=== PATIENT | female | born 1950 | race Caucasian/White ===

== ENCOUNTER 2019-11-11 10:57 | Outpatient (CLI) | payer MEDICARE ==
--- NOTE | 2019-11-11 11:23 | ULT ---
Exam: Bilateral renal ultrasound HISTORY: Microscopic hematuria COMPARISON: None FINDINGS: Right kidney: Normal cortical echotexture. No hydronephrosis. Echogenic focus with shadowing in the r ight renal pelvis compatible with a 1.7 cm renal calculus. Right kidney measurements: 4.1 x 7.3 x 12.5 cm. Left kidney: Normal cortical echotexture. No hydronephrosis Left kidney measurements 5.4 x 4.3 x 11.8 cm. Urinary bladder: Normal bladder mucosa. Bladder volume is 33 mL. IMPRESSION: 1. No hydronephrosis 2. Nonobstructing calculus in the right renal pelvis.
== END 2019-11-11 10:58 | disposition home or self-care (01) ==
LOC: SCSULT 10:57
PROVIDERS: ATTEND Family Medicine
DX: R31.29 Other microscopic hematuria (principal); N20.0 Calculus of kidney
CPT/HCPCS: 76770

== ENCOUNTER 2020-09-15 09:37 | Outpatient (CLI) | payer MEDICARE ==
[2020-09-15 12:13] LABS: Hemoglobin 12.9 g/dL (12.0-15.5); Mean Corpuscular HGB CONC 31.5 g/dL (32.0-36.0); Mean Corpuscular Hemoglobin 29.7 pg (27.0-33.0); Mean Platelet Volume 11.6 fl (7.4-10.4); Platelet Count 298 10x3/uL (150-450); RBC Distribution Width 13.2 % (11.5-14.5); Red Blood Cell (RBC) Count 4.35 10x6/uL (3.90-5.03); White Blood Cell (WBC) Count 6.6 10x3/uL (3.5-10.5)
[2020-09-15 12:20] LABS: PTT 23.4 sec (22.0-33.0); Prothrombin Time 10.5 sec (9.5-12.1)
[2020-09-15 12:26] LABS: Anion Gap 16 mmol/L (10-20); BUN (Urea Nitrogen) 13 mg/dL (9.8-20.1); Calc. Creatinine Clearance 0 mL/min (70-130); Calcium 10.1 mg/dL (7.8-10.44); Carbon Dioxide 25 mmol/L (23-31); Chloride 105 mmol/L (98-107); Glucose 104 mg/dL (83-110); Potassium 3.7 mmol/L (3.5-5.1); Sodium 142 mmol/L (136-145)
[2020-09-16 00:07] LABS: SARS-CoV-2 PCR by NAA Not Detected (NotDetected)
== END 2020-09-15 09:38 | disposition home or self-care (01) ==
LOC: LABBT 09:37
PROVIDERS: ATTEND Urology
DX: Z01.818 Encounter for other preprocedural examination (principal); N20.0 Calculus of kidney; Z20.822 Contact with and (suspected) exposure to COVID-19
CPT/HCPCS: 80048; 85027; 85610; 85730; 86850; 86900; 86901; 86920; U0003; U0005

== ENCOUNTER 2020-09-15 10:00 | Inpatient (IN) | payer MEDICARE ==
[2020-09-16 00:07] LABS: SARS-CoV-2 PCR by NAA Not Detected (NotDetected)
[2020-09-19 12:32] VITALS: BMI 23.7
[2020-09-20] MEDS ORDERED: Levofloxacin 500 mg/D5W 100 ml Premix Bag ONE (05:57)
[2020-09-20] MEDS ORDERED: Vancomycin 1 GM/200 ML BAG ONE (05:57)
[2020-09-20] MEDS ORDERED: Iothalamate Meglumine 60% 50 ML VIAL FS ONE ×2 (06:27→06:50)
[2020-09-20] MEDS ORDERED: Fentanyl 100 MCG/2 ML VIAL ONE (06:38)
[2020-09-20] MEDS ORDERED: Phenylephrine 10 MG/ML VIAL ONE (06:39)
[2020-09-20] MEDS ORDERED: SUGAMMADEX SODIUM 200 MG/2 ML VIAL ONE (06:39)
[2020-09-20] MEDS ORDERED: Famotidine/PF 20 mg/2ml Vial ONE (06:58)
[2020-09-20] MEDS ORDERED: Sodium Chloride 0.9% 30 ML ONE (07:03)
[2020-09-20] MEDS ORDERED: Rocuronium Bromide 10 MG/ML (10ML VIAL) ONE (07:40)
[2020-09-20] MEDS ORDERED: PROPOFOL 200 MG/20 ML VIAL ONE (07:40)
[2020-09-20] MEDS ORDERED: diphenhydrAMINE 50 MG/ML VIAL ONE (07:40)
[2020-09-20] MEDS ORDERED: Lidocaine 1% PF 5 ML VIAL ONE (07:40)
[2020-09-20] MEDS ORDERED: Ondansetron PF 4 MG/2 ML Vial ONE (07:40)
[2020-09-20] MEDS ORDERED: Promethazine HCl 25 MG/ML VIAL SLOW IVP PRN (08:52)
[2020-09-20] MEDS ORDERED: Meperidine HCl/PF 25 MG/ML VIAL SLOW IVP PRN (08:52)
[2020-09-20] MEDS ORDERED: Promethazine HCl 25 MG/ML VIAL IM PRN (08:52)
[2020-09-20] MEDS ORDERED: PACU-Morphine 4MG/ML VIAL SLOW IVP PRN (08:52)
[2020-09-20] MEDS ORDERED: Insulin Regular 300 UNITS/3 ML VIAL SC PRN (10:03)
[2020-09-20] MEDS ORDERED: Morphine 4 MG/ML VIAL SLOW IVP PRN (10:03)
[2020-09-20] MEDS ORDERED: hydrALAZINE 20 MG/ML VIAL SLOW IVP PRN ×2 (10:03)
[2020-09-20] MEDS ORDERED: Dextrose 5% in Water 1,000 ML IV PRN (10:03)
[2020-09-20] MEDS ORDERED: Mag-Al 1200 mg/1200 mg/30 ML UDCUP PO PRN (10:03)
[2020-09-20] MEDS ORDERED: Acetaminophen 500 MG TAB PO PRN ×2 (10:03→11:28)
[2020-09-20] MEDS ORDERED: Phenazopyridine HCl 97.5 MG TABLET PO PRN (10:03)
[2020-09-20] MEDS ORDERED: Morphine 2 MG/ML VIAL SLOW IVP PRN (10:03)
[2020-09-20] MEDS ORDERED: Zolpidem Tartrate 5 MG TAB PO PRN (10:03)
[2020-09-20] MEDS ORDERED: Bisacodyl 10 MG SUPP PR PRN (10:03)
[2020-09-20] MEDS ORDERED: Dextrose 50% Abboject 50 ML SYRINGE SLOW IVP PRN (10:03)
[2020-09-20] MEDS ORDERED: diphenhydrAMINE 50 MG/ML VIAL IVP PRN (10:03)
[2020-09-20] MEDS ORDERED: traMADol HCl 50 MG TAB PO PRN (10:09)
[2020-09-20] MEDS ORDERED: HYDROcodone/Acetaminophen 5/325 mg Tablet PO PRN (10:10)
[2020-09-20] MEDS ORDERED: Sodium Chloride 0.9% 1,000 ML IV SCH (10:15)
[2020-09-20 10:50] LABS: #Eosinphils 0.2 thou/uL (0.0-0.7); #Lymphocytes 2.1 thou/uL (1.20-3.40); #Monocytes 0.3 thou/uL (0.11-0.59); #Neutrophils 3.3 thou/uL (1.40-6.50); %Basophils 0.3 % (0.0-1.0); %Eosinophils 2.7 % (0.0-10.0); %Lymphocytes 35.6 % (21.0-51.0); %Monocytes 5.8 % (0.0-10.0); %Neutrophils 55.6 % (42.0-75.0); Hemoglobin 12.5 g/dL (12.0-16.0); Mean Corpuscular HGB CONC 31.9 g/dL (32.0-36.0); Mean Corpuscular Hemoglobin 30.5 pg (27.0-31.0); Mean Corpuscular Volume 95.5 fL (78.0-98.0); Mean Platelet Volume 8.8 fL (7.4-10.4); Platelet Count 255 thou/uL (130-400); RBC Distribution Width 12.2 % (11.5-14.5); Red Blood Cell (RBC) Count 4.11 mill/uL (4.20-5.40); White Blood Cell (WBC) Count 5.9 thou/uL (4.8-10.8)
[2020-09-20 11:05] LABS: Anion Gap 10 mmol/L (10-20); BUN (Urea Nitrogen) 7 mg/dL (9.8-20.1); Calc. Creatinine Clearance 84 mL/min (70-130); Calcium 9.1 mg/dL (7.8-10.44); Carbon Dioxide 28 mmol/L (23-31); Chloride 110 mmol/L (98-107); Glucose 108 mg/dL (83-110); Sodium 145 mmol/L (136-145)
[2020-09-20 11:35] LABS: Potassium 2.9 mmol/L (3.5-5.1)
[2020-09-20] MEDS ORDERED: NS 0.9% w/ 20 MEQ KCL 1,000 ML IV SCH (12:15)
[2020-09-20] MEDS ORDERED: Potassium Chloride 20 MEQ TAB PO SCH (12:15)
[2020-09-20] MEDS: HYDROcodone/Acetaminophen 5/325 mg Tablet PO PRN ×2 (15:10→21:02)
[2020-09-20 16:03] LABS: Hemoglobin 12.4 g/dL (12.0-16.0)
[2020-09-20 16:21] LABS: Potassium 3.6 mmol/L (3.5-5.1)
[2020-09-20] MEDS: NS 0.9% w/ 20 MEQ KCL 1,000 ML IV SCH ×2 (16:50→21:15)
[2020-09-20 17:33] LABS: Glucose 124 mg/dL (83-110)
[2020-09-20] MEDS: Docusate 100 MG CAP PO SCH (20:58)
[2020-09-20] MEDS: metFORMIN 500 MG TAB PO SCH (20:58)
[2020-09-20] MEDS: Famotidine/PF 20 mg/2ml Vial SLOW IVP SCH (20:59)
[2020-09-20] MEDS: Trospium 20 MG TAB PO SCH (21:00)
[2020-09-20] MEDS ORDERED: Simvastatin 10 MG TAB PO SCH (21:00)
[2020-09-20] MEDS: Icosapent Ethyl 1 GM CAPSULE PO SCH (21:00)
[2020-09-21] MEDS: HYDROcodone/Acetaminophen 5/325 mg Tablet PO PRN ×2 (01:10→05:21)
[2020-09-21 06:01] LABS: #Eosinphils 0.2 thou/uL (0.0-0.7); #Lymphocytes 1.9 thou/uL (1.20-3.40); #Monocytes 0.4 thou/uL (0.11-0.59); #Neutrophils 3.3 thou/uL (1.40-6.50); %Basophils 0.4 % (0.0-1.0); %Eosinophils 3.2 % (0.0-10.0); %Monocytes 7.5 % (0.0-10.0); %Neutrophils 55.8 % (42.0-75.0); Hemoglobin 11.1 g/dL (12.0-16.0); Mean Corpuscular HGB CONC 31.8 g/dL (32.0-36.0); Mean Corpuscular Hemoglobin 30.1 pg (27.0-31.0); Mean Corpuscular Volume 94.6 fL (78.0-98.0); Mean Platelet Volume 8.7 fL (7.4-10.4); Platelet Count 251 thou/uL (130-400); RBC Distribution Width 12.2 % (11.5-14.5); Red Blood Cell (RBC) Count 3.69 mill/uL (4.20-5.40); White Blood Cell (WBC) Count 5.8 thou/uL (4.8-10.8)
[2020-09-21 06:20] LABS: Anion Gap 8 mmol/L (10-20); BUN (Urea Nitrogen) 5 mg/dL (9.8-20.1); Calc. Creatinine Clearance 81 mL/min (70-130); Calcium 8.9 mg/dL (7.8-10.44); Carbon Dioxide 28 mmol/L (23-31); Chloride 112 mmol/L (98-107); Glucose 99 mg/dL (83-110); Sodium 144 mmol/L (136-145)
[2020-09-21] MEDS ORDERED: cefTRIAXone\\ROCEPHIN 1 GM in Sodium Chloride 0.9% 100 ML IVPB SCH (07:00)
[2020-09-21 08:06] VITALS: TEMP 98.5
[2020-09-21] MEDS: Icosapent Ethyl 1 GM CAPSULE PO SCH (08:57)
[2020-09-21] MEDS: Trospium 20 MG TAB PO SCH (08:57)
[2020-09-21] MEDS: Docusate 100 MG CAP PO SCH (08:58)
[2020-09-21] MEDS: Famotidine/PF 20 mg/2ml Vial SLOW IVP SCH (08:58)
[2020-09-21] MEDS: metFORMIN 500 MG TAB PO SCH (08:58)
[2020-09-21] MEDS ORDERED: Loratadine 10 MG TAB PO SCH (09:00)
[2020-09-21] MEDS ORDERED: Fenofibrate Nanocrystallized 145 MG TAB PO SCH (09:00)
[2020-09-21] MEDS ORDERED: Multivit, Therapeutic 1 TAB PO SCH (09:00)
[2020-09-21 09:31] LABS: Glucose 130 mg/dL (83-110)
[2020-09-21] MEDS ORDERED: Losartan 25 MG TAB PO SCH (09:45)
[2020-09-21 11:45] VITALS: BP 134/81
[2020-09-21 11:47] LABS: Glucose 94 mg/dL (83-110)
[2020-09-22] MEDS ORDERED: Losartan 25 MG TAB PO SCH (09:00)
== END 2020-09-21 15:31 | disposition home or self-care (01) | DRG 661 ==
LOC: SURG A 09-20 05:45 → INTOOBSV 09-20 05:45 → SURG A 09-20 11:39 → OBSVTOIN 09-20 16:09
PROVIDERS: ADMIT Urology; ATTEND Urology
PROC: 0TC34ZZ Extirpation of Matter from Right Kidney Pelvis, Percutaneous Endoscopic Approach (ICD-10-PCS; principal; 2020-09-20)
PROC: 0T9 Urinary System, Drainage (ICD-10-PCS; 2020-09-20)
PROC: 0TP5X0Z Removal of Drainage Device from Kidney, External Approach (ICD-10-PCS; 2020-09-20)
PROC: BT1D1ZZ Fluoroscopy of Right Kidney, Ureter and Bladder using Low Osmolar Contrast (ICD-10-PCS; 2020-09-20)
DX: N20.0 Calculus of kidney (principal); N28.1 Cyst of kidney, acquired; Z20.822 Contact with and (suspected) exposure to COVID-19; I10 Essential (primary) hypertension; E78.5 Hyperlipidemia, unspecified; J30.2 Other seasonal allergic rhinitis; E66.9 Obesity, unspecified; E11.9 Type 2 diabetes mellitus without complications; E87.6 Hypokalemia; R31.29 Other microscopic hematuria; Z68.23 Body mass index [BMI] 23.0-23.9, adult; Z79.899 Other long term (current) drug therapy; Z79.84 Long term (current) use of oral hypoglycemic drugs; Z90.49 Acquired absence of other specified parts of digestive tract
CPT/HCPCS: 36415; 36416; 71045; 74018; 74178; 74420; 80048; 82365; 85025; 86850; 86900; 86901; 88300; C1729; C1751; J0696; J1200; J1956; J2370; J2405; J2704; J3010; J3370; J3480; J3490; Q9961; S0028; U0003; U0005

== ENCOUNTER 2021-02-01 12:58 | Outpatient (CLI) | payer MEDICARE ==
[2021-02-01 16:16] LABS: Bilirubin Negative (Negative); Blood, Urine Negative (Negative); Clarity Turbid (Clear); Glucose, Urine (Dipstick) Normal (Negative); Ketone, Urine Negative (Negative); Leukocyte 500 Leu/uL (Negative); Nitrite Negative (Negative); Protein, Urine (Dipstick) Negative (Neg-Trace); RBC/HPF 0-3 HPF (0-3); Specific Gravity, Urine 1.019 (1.002-1.036); Squamous Epithelial 0-3 HPF (0-3); Urobilinogen Normal mg/dL (Less than 2); pH, Urine 5.5 (5.0-9.0)
[2021-02-01 16:17] LABS: Bacteria/HPF 1+ HPF (None Seen)
[2021-02-01 16:18] LABS: WBC/HPF 21-50 HPF (0-3)
[2021-02-01 16:20] LABS: Urine Culture Reflex Yes Yes
[2021-02-01 16:27] LABS: Anion Gap 16 mmol/L (10-20); BUN (Urea Nitrogen) 17 mg/dL (9.8-20.1); Calc. Creatinine Clearance 0 mL/min (70-130); Calcium 10.7 mg/dL (7.8-10.44); Carbon Dioxide 27 mmol/L (23-31); Chloride 105 mmol/L (98-107); Glucose 106 mg/dL (83-110); Potassium 4.3 mmol/L (3.5-5.1); Sodium 144 mmol/L (136-145); Uric Acid 3.7 mg/dL (2.6-6.0)
== END 2021-02-01 12:59 | disposition home or self-care (01) ==
LOC: SCSRAD 12:58
PROVIDERS: ATTEND Urology
DX: N20.0 Calculus of kidney (principal); N28.1 Cyst of kidney, acquired; E83.52 Hypercalcemia
CPT/HCPCS: 36415; 74018; 80048; 81001; 83970; 84550; 87086

== ENCOUNTER 2021-08-27 12:46 | Outpatient (CLI) | payer MEDICARE ==
[2021-08-27 16:37] LABS: Anion Gap 18 mmol/L (10-20); BUN (Urea Nitrogen) 19 mg/dL (9.8-20.1); Calc. Creatinine Clearance 0 mL/min (70-130); Calcium 9.9 mg/dL (7.8-10.44); Carbon Dioxide 21 mmol/L (23-31); Chloride 107 mmol/L (98-107); Glucose 102 mg/dL (83-110); Potassium 4.3 mmol/L (3.5-5.1); Sodium 142 mmol/L (136-145)
[2021-08-27 16:57] LABS: Bacteria/HPF None Seen HPF (None Seen); Bilirubin Negative (Negative); Blood, Urine Negative (Negative); Clarity Clear (Clear); Glucose, Urine (Dipstick) Normal (Negative); Ketone, Urine Negative (Negative); Leukocyte 500 Leu/uL (Negative); Nitrite Negative (Negative); Protein, Urine (Dipstick) Negative (Neg-Trace); Specific Gravity, Urine 1.016 (1.002-1.036); Squamous Epithelial 0-3 HPF (0-3); Urobilinogen Normal mg/dL (Less than 2); pH, Urine 5.5 (5.0-9.0)
[2021-08-27 17:03] LABS: Urine Culture Reflex Yes Yes
== END 2021-08-27 12:47 | disposition home or self-care (01) ==
LOC: SCSRAD 12:46
PROVIDERS: ATTEND Urology
DX: R31.29 Other microscopic hematuria (principal); N20.0 Calculus of kidney; E83.52 Hypercalcemia
CPT/HCPCS: 36415; 74018; 80048; 81001; 87086

== ENCOUNTER 2022-08-19 10:18 | Outpatient (CLI) | payer OTHER | END 2022-08-19 10:19 | disposition home or self-care (01) | LOC: SCSRAD 10:18 | PROVIDERS: ATTEND Urology | DX: N20.0 Calculus of kidney (principal) | CPT/HCPCS: 36415; 74018; 80048; 81001; 87086 ==

== ENCOUNTER 2023-08-26 11:39 | Outpatient (CLI) | payer OTHER | END 2023-08-26 11:40 | disposition home or self-care (01) | LOC: BICRAD 11:39 | PROVIDERS: ATTEND Urology | DX: N20.0 Calculus of kidney (principal); E83.52 Hypercalcemia; R31.29 Other microscopic hematuria; R80.9 Proteinuria, unspecified | CPT/HCPCS: 36415; 74018; 80048; 81001; 87077; 87086 ==

== ENCOUNTER 2024-04-07 11:29 | Outpatient (CLI) | payer OTHER | END 2024-04-07 11:30 | disposition home or self-care (01) | LOC: BICRAD 11:29 | PROVIDERS: ATTEND Chiropractor | DX: M51.360 Other intervertebral disc degeneration, lumbar region with discogenic back pain only (principal); M47.816 Spondylosis without myelopathy or radiculopathy, lumbar region; Z98.890 Other specified postprocedural states | CPT/HCPCS: 72100 ==